=== PATIENT | female | born 1985 | race African-American/Black ===

== ENCOUNTER 2018-07-02 13:48 | Inpatient (IN) | payer SELFPAY ==
[~2018-07-02] VITALS: Ht 162.6 cm; Wt 63.0 kg
[2018-07-02] VITALS (18 sets, daily range): BP systolic 88–123; BP diastolic 32–81
[2018-07-02] MEDS ORDERED: ONDANSETRON HCL 4MG/2ML INJ IV STA (14:05)
[2018-07-02] MEDS ORDERED: ETOMIDATE 2MG/ML 10ML VIAL IV ONE ×2 (14:15→14:22)
[2018-07-02] MEDS ORDERED: VECURONIUM BROMIDE 10 MG/VIAL IV ONE ×2 (14:15→14:22)
[2018-07-02] MEDS ORDERED: LEVETIRACETAM 500MG PREMIX 100 ML IV ONE (14:15)
[2018-07-02] MEDS ORDERED: PROPOFOL 10MG/ML 100ML 100 ML IV ONE (14:15)
[2018-07-02] MEDS ORDERED: SODIUM CHLORIDE 0.9% 10ML VIAL ONE (14:22)
[2018-07-02 14:37] LABS: BG BASE EXCESS -21.8 mmol/L (-2.0-2.0); BG CARBOXYHEMOGLOBIN 0.3 % (0.5-1.5); BG DEOXYHEMOGLOBIN 4.4 % (0.0-5.0); BG FRACTION INSPIRED OXYGEN 100; BG HCO3 ACT 11.5 mmol/L (22.0-26.0); BG METHEMOGLOBIN 0.7 % (0.0-1.5); BG OXYGEN SATURATION 95.6 % (92.0-98.5); BG OXYHEMOGLOBIN 94.6 % (94.0-97.0); BG PCO2 60.8 mmHg (35.0-45.0); BG PH 6.894 (7.350-7.450); BG PO2 129.7 mmHg (75.0-100.0); BG SAMPLE SITE RIGHT RADIAL; BG TIDAL VOLUME(mL) 500 mL; BG TOTAL HEMOGLOBIN 13.3 g/dL (12.0-18.0); BG VENT MODE VENT - A/C; BG VENT RATE 18 set
[2018-07-02 14:47] LABS: BASOPHILS % 0.9 % (0.0-2.0); EOSINOPHILS % 5.4 % (0.0-5.0); HEMATOCRIT. 39.3 % (36.0-48.0); HEMOGLOBIN. 12.3 g/dL (12.0-16.0); LYMPHOCYTES % 34.1 % (20.0-50.0); MEAN PLATELET VOLUME 9.2 fl (7.4-10.4); MONOCYTES % 4.8 % (2.0-8.0); NEUTROPHILS % 54.8 % (40.0-76.0); PLATELET 425 x1000/uL (130-400); RED BLOOD CELL COUNT 4.23 mill/uL (4.2-5.4); RED CELL DISTRIBUTION WIDTH 14.1 % (11.6-14.6)
[2018-07-02 14:53] LABS: CHLORIDE 100 mEq/L (98-107)
[2018-07-02 14:57] LABS: ETHANOL BLOOD < 10 mg/dL
[2018-07-02 15:10] LABS: CARBAMAZEPINE < 0.5 ug/mL (4-12); PHENOBARBITAL < 2.1 ug/mL (15.0-40.0); VALPROIC ACID < 3.0 ug/mL (50-100)
[2018-07-02 15:13] LABS: HCG SCREEN NEGATIVE
[2018-07-02 15:26] LABS: INR 1.1; PARTIAL THROMBOPLASTIN TIME 29.6 sec (23.4-31.0); PROTHROMBIN TIME 11.3 sec (9.1-11.1)
[2018-07-02 15:40] LABS: BG BASE EXCESS -9.6 mmol/L (-2.0-2.0); BG CARBOXYHEMOGLOBIN 0.2 % (0.5-1.5); BG DEOXYHEMOGLOBIN 1.9 % (0.0-5.0); BG METHEMOGLOBIN 0.6 % (0.0-1.5); BG OXYGEN SATURATION 98.1 % (92.0-98.5); BG OXYHEMOGLOBIN 97.3 % (94.0-97.0); BG PCO2 45.7 mmHg (35.0-45.0); BG PH 7.214 (7.350-7.450); BG PO2 139.6 mmHg (75.0-100.0); BG SAMPLE SITE RIGHT RADIAL; BG TIDAL VOLUME(mL) 500 mL; BG TOTAL HEMOGLOBIN 13.8 g/dL (12.0-18.0); BG VENT MODE VENT - A/C; BG VENT RATE 22 set
[2018-07-02] MEDS ORDERED: LEVOFLOXACIN 750MG PREMIX 150 ML IV ONE (15:45)
[2018-07-02] MEDS ORDERED: METRONIDAZOLE 500 MG PREMIX 100 ML IV ONE (15:45)
[2018-07-02 15:56] LABS: CLARITY URINE CLEAR (CLEAR); COLOR URINE YELLOW (YELLOW); KETONES URINE NEGATIVE (NEGATIVE); LEUKOCYTE ESTERASE URINE 2+ (NEGATIVE); NITRITE URINE NEGATIVE (NEGATIVE); OCCULT BLOOD URINE 1+ (NEGATIVE); PH URINE 6.5 (4.5-8.0); PROTEIN URINE 1+ (NEGATIVE); SPECIFIC GRAVITY URINE 1.008 (1.005-1.030); UROBILINOGEN URINE 0.2 E.U./dL (0.2-1.0)
[2018-07-02 16:07] LABS: *AMPHETAMINES SCREEN URINE NEGATIVE (NEGATIVE); *BARBITURATES SCREEN URINE NEGATIVE (NEGATIVE); *COCAINE SCREEN URINE NEGATIVE (NEGATIVE); METHADONE URINE SCREEN NEGATIVE (NEGATIVE); OPIATES URINE SCREEN NEGATIVE (NEGATIVE)
[2018-07-02 16:08] LABS: CANNABINOID URINE SCREEN NEGATIVE (NEGATIVE); PHENCYCLIDINE URINE SCREEN NEGATIVE (NEGATIVE)
[2018-07-02 16:13] LABS: *BENZODIAZEPINES SCREEN URINE PRESUMTIVE POSITIVE (NEGATIVE)
[2018-07-02] MEDS ORDERED: LORAZEPAM 20 MG in DEXT 5% WATER 90 ML IV STA ×2 (17:52→18:13)
[2018-07-02] MEDS ORDERED: SODIUM CHLORIDE 0.9% 1000ML BAG (SEPSIS BOLUS) IV ONE (18:00)
[2018-07-02] MEDS ORDERED: SODIUM CHLORIDE 0.9% 1,000 ML IV SCH (19:45)
[2018-07-02] MEDS ORDERED: PNEUMOCOCCAL 23-VAL P-SAC VAC 0.5 ML IM ONE (20:15)
[2018-07-02] MEDS ORDERED: INFLUENZA VIRUS VACCINE(AFLURIA) 0.5ML SYR IM ONE (20:15)
[2018-07-02] MEDS ORDERED: LORAZEPAM 20 MG in DEXT 5% WATER 90 ML IV PRN (20:30)
[2018-07-02] MEDS ORDERED: IPRATROPIUM/ALBUTEROL 0.5-3(2.5)MG/3ML NEB INH PRN (21:00)
[2018-07-02] MEDS ORDERED: ONDANSETRON HCL 4MG/2ML INJ IV PRN (21:00)
[2018-07-02] MEDS: IPRATROPIUM/ALBUTEROL 0.5-3(2.5)MG/3ML NEB HHN SCH (21:27)
[2018-07-02] MEDS: FAMOTIDINE 20MG/2ML VIAL IV SCH (21:43)
[2018-07-02] MEDS: LEVETIRACETAM 500 MG in SODIUM CHLORIDE 0.9% 100 ML IV SCH (21:43)
[2018-07-02 23:05] LABS: BG BASE EXCESS -8.9 mmol/L (-2.0-2.0); BG DEOXYHEMOGLOBIN 0.6 % (0.0-5.0); BG FRACTION INSPIRED OXYGEN 100; BG HCO3 ACT 18.1 mmol/L (22.0-26.0); BG METHEMOGLOBIN 0.5 % (0.0-1.5); BG OXYGEN SATURATION 99.4 % (92.0-98.5); BG OXYHEMOGLOBIN 98.9 % (94.0-97.0); BG PCO2 42.8 mmHg (35.0-45.0); BG PH 7.243 (7.350-7.450); BG PO2 275.5 mmHg (75.0-100.0); BG SAMPLE SITE LEFT RADIAL; BG TIDAL VOLUME(mL) 500 mL; BG TOTAL HEMOGLOBIN 13.1 g/dL (12.0-18.0); BG VENT MODE VENT - A/C; BG VENT RATE 22 set
[2018-07-02] MEDS: PROPOFOL 10MG/ML 100ML 100 ML IV PRN (23:25)
[2018-07-03] VITALS (101 sets, daily range): BP systolic 41–136; BP diastolic 19–111
[2018-07-03] MEDS: IPRATROPIUM/ALBUTEROL 0.5-3(2.5)MG/3ML NEB HHN SCH ×6 (00:09→20:27)
[2018-07-03] MEDS: PIPERACILLIN/TAZ 3.375G PREMIX 50 ML IV SCH ×3 (00:10→11:51)
[2018-07-03] MEDS ORDERED: LORAZEPAM 2MG/ML CPJ IV PRN (02:30)
[2018-07-03 05:51] LABS: HEMATOCRIT. 35.5 % (36.0-48.0); MEAN CORPUSCULAR HEMOGLOBIN 29.6 pg (28.0-32.0); MEAN PLATELET VOLUME 8.4 fl (7.4-10.4); PLATELET 234 x1000/uL (130-400); RED BLOOD CELL COUNT 4.03 mill/uL (4.2-5.4); RED CELL DISTRIBUTION WIDTH 13.3 % (11.6-14.6)
[2018-07-03 05:55] LABS: PHOSPHORUS 2.3 mg/dL (2.5-4.9)
[2018-07-03] MEDS ORDERED: SODIUM CHLORIDE 0.9% 500 ML IV ONE (06:45)
[2018-07-03] MEDS ORDERED: SODIUM CHLORIDE 0.9% 1,000 ML IV ONE (06:45)
[2018-07-03 08:08] LABS: PLATELET ESTIMATE NORMAL
[2018-07-03 09:05] LABS: BG BASE EXCESS -9.1 mmol/L (-2.0-2.0); BG CARBOXYHEMOGLOBIN 0.5 % (0.5-1.5); BG DEOXYHEMOGLOBIN 1.1 % (0.0-5.0); BG FRACTION INSPIRED OXYGEN 70; BG HCO3 ACT 17.3 mmol/L (22.0-26.0); BG METHEMOGLOBIN 0.5 % (0.0-1.5); BG OXYGEN SATURATION 98.9 % (92.0-98.5); BG OXYHEMOGLOBIN 97.9 % (94.0-97.0); BG PCO2 39.4 mmHg (35.0-45.0); BG PH 7.261 (7.350-7.450); BG PO2 151.8 mmHg (75.0-100.0); BG SAMPLE SITE LEFT BRACHIAL; BG TIDAL VOLUME(mL) 500 mL; BG TOTAL HEMOGLOBIN 11.8 g/dL (12.0-18.0); BG VENT MODE VENT - A/C; BG VENT RATE 22 set
[2018-07-03] MEDS: FAMOTIDINE 20MG/2ML VIAL IV SCH (09:25)
[2018-07-03] MEDS: LEVETIRACETAM 500 MG in SODIUM CHLORIDE 0.9% 100 ML IV SCH ×2 (09:25→20:39)
[2018-07-03] MEDS: ENOXAPARIN 40MG/0.4ML SYR SUBCUT SCH (09:26)
[2018-07-03] MEDS: PROPOFOL 10MG/ML 100ML 100 ML IV PRN (14:02)
[2018-07-03] MEDS: SODIUM CHLORIDE 0.9% 1,000 ML IV SCH ×2 (14:12→20:46)
[2018-07-03] MEDS: PIPERACILLIN/TAZ 2.25G PREMIX 50 ML IV SCH ×2 (18:33→23:51)
[2018-07-03] MEDS: ACETAMINOPHEN 325MG TABLET NG PRN (20:45)
[2018-07-04] VITALS (89 sets, daily range): BP systolic 89–143; BP diastolic 30–100
[2018-07-04] MEDS: IPRATROPIUM/ALBUTEROL 0.5-3(2.5)MG/3ML NEB HHN SCH ×4 (00:37→12:07)
[2018-07-04] MEDS: PROPOFOL 10MG/ML 100ML 100 ML IV PRN ×2 (02:00→11:00)
[2018-07-04] MEDS: SODIUM CHLORIDE 0.9% 1,000 ML IV SCH ×4 (04:50→21:20)
[2018-07-04] MEDS: PIPERACILLIN/TAZ 2.25G PREMIX 50 ML IV SCH ×4 (05:26→23:27)
[2018-07-04 08:31] LABS: BG CARBOXYHEMOGLOBIN 0.2 % (0.5-1.5); BG DEOXYHEMOGLOBIN 1.2 % (0.0-5.0); BG FRACTION INSPIRED OXYGEN 70; BG HCO3 ACT 20.2 mmol/L (22.0-26.0); BG METHEMOGLOBIN 0.5 % (0.0-1.5); BG OXYGEN SATURATION 98.8 % (92.0-98.5); BG OXYHEMOGLOBIN 98.1 % (94.0-97.0); BG PCO2 42.1 mmHg (35.0-45.0); BG PH 7.298 (7.350-7.450); BG PO2 212.9 mmHg (75.0-100.0); BG SAMPLE SITE LEFT BRACHIAL; BG TIDAL VOLUME(mL) 500 mL; BG VENT MODE VENT - A/C; BG VENT RATE 22 set
[2018-07-04] MEDS: LEVETIRACETAM 500 MG in SODIUM CHLORIDE 0.9% 100 ML IV SCH ×2 (09:44→20:48)
[2018-07-04] MEDS: ENOXAPARIN 40MG/0.4ML SYR SUBCUT SCH (09:45)
[2018-07-04] MEDS: FAMOTIDINE 20MG/2ML VIAL IV SCH (09:45)
[2018-07-04] MEDS ORDERED: POTASSIUM CHLORIDE 20MEQ/PACKET NG SCH (12:30)
[2018-07-04] MEDS ORDERED: POTASSIUM PHOS,M-BASIC-D-BASIC 15 MMOL in DEXT 5% WATER 245 ML IV SCH (13:30)
[2018-07-04] MEDS: METHYLPREDNISOLONE SOD SUCC 125 MG/2 ML VIAL IV SCH ×2 (14:07→22:10)
[2018-07-04] MEDS: ACETAMINOPHEN 325MG TABLET NG PRN (17:55)
[2018-07-04] MEDS: IPRATROPIUM BROMIDE (0.02%) 0.5MG/2.5ML NEB HHN SCH (20:00)
[2018-07-05] VITALS (85 sets, daily range): BP systolic 93–174; BP diastolic 39–99
[2018-07-05] MEDS: IPRATROPIUM BROMIDE (0.02%) 0.5MG/2.5ML NEB HHN SCH ×4 (02:01→20:15)
[2018-07-05] MEDS: PROPOFOL 10MG/ML 100ML 100 ML IV PRN ×3 (02:34→17:31)
[2018-07-05] MEDS: SODIUM CHLORIDE 0.9% 1,000 ML IV SCH ×3 (04:00→23:00)
[2018-07-05] MEDS: PIPERACILLIN/TAZ 2.25G PREMIX 50 ML IV SCH ×3 (05:11→17:30)
[2018-07-05] MEDS: METHYLPREDNISOLONE SOD SUCC 125 MG/2 ML VIAL IV SCH (05:12)
[2018-07-05 06:14] LABS: HEMATOCRIT. 34.4 % (36.0-48.0); HEMOGLOBIN. 11.2 g/dL (12.0-16.0); MEAN CORPUSCULAR HEMOGLOBIN 28.6 pg (28.0-32.0); MEAN CORPUSCULAR VOLUME 87.6 fL (81.0-99.0); MEAN PLATELET VOLUME 9.3 fl (7.4-10.4); PLATELET 232 x1000/uL (130-400); RED BLOOD CELL COUNT 3.93 mill/uL (4.2-5.4); RED CELL DISTRIBUTION WIDTH 14.2 % (11.6-14.6)
[2018-07-05 06:24] LABS: CHLORIDE 120 mEq/L (98-107)
[2018-07-05 06:30] LABS: PHOSPHORUS 1.5 mg/dL (2.5-4.9)
[2018-07-05 08:27] LABS: BG BASE EXCESS -3.7 mmol/L (-2.0-2.0); BG CARBOXYHEMOGLOBIN 0.4 % (0.5-1.5); BG DEOXYHEMOGLOBIN 1.2 % (0.0-5.0); BG FRACTION INSPIRED OXYGEN 40; BG HCO3 ACT 21.2 mmol/L (22.0-26.0); BG METHEMOGLOBIN 0.4 % (0.0-1.5); BG OXYGEN SATURATION 98.8 % (92.0-98.5); BG PCO2 37.7 mmHg (35.0-45.0); BG PH 7.367 (7.350-7.450); BG PO2 132.4 mmHg (75.0-100.0); BG SAMPLE SITE RIGHT RADIAL; BG TIDAL VOLUME(mL) 500 mL; BG TOTAL HEMOGLOBIN 11.4 g/dL (12.0-18.0); BG VENT MODE VENT - A/C; BG VENT RATE 22 set
[2018-07-05 08:29] LABS: PLATELET ESTIMATE NORMAL
[2018-07-05] MEDS: ENOXAPARIN 40MG/0.4ML SYR SUBCUT SCH (09:41)
[2018-07-05] MEDS: FAMOTIDINE 20MG/2ML VIAL IV SCH (09:41)
[2018-07-05] MEDS: LEVETIRACETAM 500 MG in SODIUM CHLORIDE 0.9% 100 ML IV SCH ×2 (09:42→21:16)
[2018-07-05] MEDS ORDERED: POTASSIUM PHOS,M-BASIC-D-BASIC 15 MMOL in DEXTROSE 5% WATER 250 ML IV NR (13:30)
[2018-07-05] MEDS: FLUCONAZOLE 200 MG/100ML BAG 100 ML IV SCH (15:37)
[2018-07-05] MEDS: VANCOMYCIN 1 G PREMIX 200 ML IV SCH (15:37)
[2018-07-05] MEDS: METHYLPREDNISOLONE SOD SUCC 40 MG/ML VIAL IV SCH (17:30)
[2018-07-06] VITALS (66 sets, daily range): BP systolic 89–149; BP diastolic 49–107
[2018-07-06] MEDS: PIPERACILLIN/TAZ 2.25G PREMIX 50 ML IV SCH ×5 (00:49→23:47)
[2018-07-06] MEDS: IPRATROPIUM BROMIDE (0.02%) 0.5MG/2.5ML NEB HHN SCH ×4 (02:01→20:10)
[2018-07-06] MEDS: VANCOMYCIN 1 G PREMIX 200 ML IV SCH ×2 (03:11→14:47)
[2018-07-06] MEDS: SODIUM CHLORIDE 0.9% 1,000 ML IV SCH ×4 (07:02→20:48)
[2018-07-06] MEDS: LEVETIRACETAM 500 MG in SODIUM CHLORIDE 0.9% 100 ML IV SCH ×2 (08:50→20:49)
[2018-07-06] MEDS: FAMOTIDINE 20MG/2ML VIAL IV SCH (08:51)
[2018-07-06] MEDS: METHYLPREDNISOLONE SOD SUCC 40 MG/ML VIAL IV SCH ×2 (08:51→17:20)
[2018-07-06] MEDS: ENOXAPARIN 40MG/0.4ML SYR SUBCUT SCH (08:51)
[2018-07-06] MEDS: PROPOFOL 10MG/ML 100ML 100 ML IV PRN ×2 (09:05→17:29)
[2018-07-06 10:45] LABS: HEMATOCRIT. 34.4 % (36.0-48.0); HEMOGLOBIN. 11.4 g/dL (12.0-16.0); MEAN CORPUSCULAR HEMOGLOBIN 28.9 pg (28.0-32.0); MEAN CORPUSCULAR VOLUME 87.2 fL (81.0-99.0); MEAN PLATELET VOLUME 9.1 fl (7.4-10.4); PLATELET 250 x1000/uL (130-400); RED BLOOD CELL COUNT 3.95 mill/uL (4.2-5.4); RED CELL DISTRIBUTION WIDTH 14.2 % (11.6-14.6)
[2018-07-06] MEDS: METOCLOPRAMIDE HCL 10MG/2ML VIAL IV SCH ×3 (12:09→23:51)
[2018-07-06 13:04] LABS: PLATELET ESTIMATE NORMAL
[2018-07-06] MEDS: FLUCONAZOLE 200 MG/100ML BAG 100 ML IV SCH (13:10)
[2018-07-06] MEDS: ACETYLCYSTEINE 100MG/ML 10% VIAL 4ML INH SCH (14:00)
[2018-07-06] MEDS: FENTANYL CITRATE/PF 50MCG/ML 2ML VIAL IV PRN (17:30)
[2018-07-07] VITALS (50 sets, daily range): BP systolic 100–142; BP diastolic 50–93
[2018-07-07] MEDS: IPRATROPIUM BROMIDE (0.02%) 0.5MG/2.5ML NEB HHN SCH ×4 (01:20→20:10)
[2018-07-07] MEDS: ACETYLCYSTEINE 100MG/ML 10% VIAL 4ML INH SCH ×3 (01:20→14:39)
[2018-07-07] MEDS: VANCOMYCIN 1 G PREMIX 200 ML IV SCH ×2 (02:11→13:24)
[2018-07-07] MEDS: SODIUM CHLORIDE 0.9% 1,000 ML IV SCH ×5 (02:11→22:00)
[2018-07-07] MEDS: PROPOFOL 10MG/ML 100ML 100 ML IV PRN ×2 (02:18→14:28)
[2018-07-07] MEDS: METOCLOPRAMIDE HCL 10MG/2ML VIAL IV SCH ×4 (07:06→23:51)
[2018-07-07] MEDS: PIPERACILLIN/TAZ 2.25G PREMIX 50 ML IV SCH ×4 (07:06→23:51)
[2018-07-07 08:26] LABS: BG BASE EXCESS 0.1 mmol/L (-2.0-2.0); BG CARBOXYHEMOGLOBIN 0.3 % (0.5-1.5); BG DEOXYHEMOGLOBIN 1.2 % (0.0-5.0); BG FRACTION INSPIRED OXYGEN 40; BG METHEMOGLOBIN 0.3 % (0.0-1.5); BG OXYGEN SATURATION 98.8 % (92.0-98.5); BG OXYHEMOGLOBIN 98.2 % (94.0-97.0); BG PCO2 36.7 mmHg (35.0-45.0); BG PH 7.434 (7.350-7.450); BG PO2 178.3 mmHg (75.0-100.0); BG SAMPLE SITE RIGHT RADIAL; BG TIDAL VOLUME(mL) 450 mL; BG TOTAL HEMOGLOBIN 11.7 g/dL (12.0-18.0); BG VENT MODE VENT - A/C; BG VENT RATE 20 set
[2018-07-07] MEDS: METHYLPREDNISOLONE SOD SUCC 40 MG/ML VIAL IV SCH ×2 (08:39→17:10)
[2018-07-07] MEDS: LEVETIRACETAM 500 MG in SODIUM CHLORIDE 0.9% 100 ML IV SCH ×2 (08:40→20:39)
[2018-07-07] MEDS: FLUCONAZOLE 100MG TABLET PO SCH (08:40)
[2018-07-07] MEDS: FAMOTIDINE 20MG/2ML VIAL IV SCH (08:40)
[2018-07-07] MEDS: ENOXAPARIN 40MG/0.4ML SYR SUBCUT SCH (08:40)
[2018-07-07] MEDS: FENTANYL CITRATE/PF 50MCG/ML 2ML VIAL IV PRN (08:42)
[2018-07-08] VITALS (103 sets, daily range): BP systolic 70–182; BP diastolic 36–130
[2018-07-08] MEDS: PROPOFOL 10MG/ML 100ML 100 ML IV PRN (01:03)
[2018-07-08] MEDS: IPRATROPIUM BROMIDE (0.02%) 0.5MG/2.5ML NEB HHN SCH ×4 (01:47→20:19)
[2018-07-08] MEDS: ACETYLCYSTEINE 100MG/ML 10% VIAL 4ML INH SCH ×2 (01:48→08:25)
[2018-07-08] MEDS: VANCOMYCIN 1 G PREMIX 200 ML IV SCH ×2 (02:00→14:53)
[2018-07-08 05:50] LABS: CHLORIDE 119 mEq/L (98-107)
[2018-07-08] MEDS: SODIUM CHLORIDE 0.9% 1,000 ML IV SCH ×3 (06:38→21:13)
[2018-07-08] MEDS: METOCLOPRAMIDE HCL 10MG/2ML VIAL IV SCH ×4 (06:39→23:31)
[2018-07-08] MEDS: PIPERACILLIN/TAZ 2.25G PREMIX 50 ML IV SCH ×4 (06:39→23:31)
[2018-07-08 08:35] LABS: BG CARBOXYHEMOGLOBIN 0.3 % (0.5-1.5); BG DEOXYHEMOGLOBIN 1.8 % (0.0-5.0); BG FRACTION INSPIRED OXYGEN 35; BG METHEMOGLOBIN 0.3 % (0.0-1.5); BG OXYGEN SATURATION 98.2 % (92.0-98.5); BG OXYHEMOGLOBIN 97.6 % (94.0-97.0); BG PCO2 42.2 mmHg (35.0-45.0); BG PH 7.391 (7.350-7.450); BG PO2 127.9 mmHg (75.0-100.0); BG SAMPLE SITE LEFT RADIAL; BG TIDAL VOLUME(mL) 450 mL; BG TOTAL HEMOGLOBIN 10.7 g/dL (12.0-18.0); BG VENT MODE VENT - A/C; BG VENT RATE 16 set
[2018-07-08] MEDS: LEVETIRACETAM 500 MG in SODIUM CHLORIDE 0.9% 100 ML IV SCH ×2 (09:06→20:53)
[2018-07-08] MEDS: FLUCONAZOLE 100MG TABLET PO SCH (09:07)
[2018-07-08] MEDS: FAMOTIDINE 20MG/2ML VIAL IV SCH (09:07)
[2018-07-08] MEDS: ENOXAPARIN 40MG/0.4ML SYR SUBCUT SCH (09:07)
[2018-07-08] MEDS: METHYLPREDNISOLONE SOD SUCC 40 MG/ML VIAL IV SCH ×2 (09:07→17:18)
[2018-07-08] MEDS: FENTANYL CITRATE/PF 50MCG/ML 2ML VIAL IV PRN ×3 (10:30→21:14)
[2018-07-08] MEDS ORDERED: PROPOFOL 10MG/ML 100ML 100 ML IV PRN (14:30)
[2018-07-08] MEDS: ACETAMINOPHEN 325MG TABLET NG PRN (20:53)
[2018-07-09] VITALS (63 sets, daily range): BP systolic 116–174; BP diastolic 32–123
[2018-07-09] MEDS: IPRATROPIUM BROMIDE (0.02%) 0.5MG/2.5ML NEB HHN SCH ×4 (01:54→20:11)
[2018-07-09] MEDS: VANCOMYCIN 1 G PREMIX 200 ML IV SCH ×2 (02:18→14:29)
[2018-07-09] MEDS: PIPERACILLIN/TAZ 2.25G PREMIX 50 ML IV SCH ×4 (05:05→23:24)
[2018-07-09] MEDS: FENTANYL CITRATE/PF 50MCG/ML 2ML VIAL IV PRN ×2 (05:06→10:15)
[2018-07-09] MEDS: METOCLOPRAMIDE HCL 10MG/2ML VIAL IV SCH ×4 (05:06→23:24)
[2018-07-09] MEDS: SODIUM CHLORIDE 0.9% 1,000 ML IV SCH ×3 (08:00→15:59)
[2018-07-09] MEDS: ENOXAPARIN 40MG/0.4ML SYR SUBCUT SCH (08:16)
[2018-07-09] MEDS: FLUCONAZOLE 100MG TABLET PO SCH (08:16)
[2018-07-09] MEDS: FAMOTIDINE 20MG/2ML VIAL IV SCH (08:16)
[2018-07-09] MEDS: METHYLPREDNISOLONE SOD SUCC 40 MG/ML VIAL IV SCH ×2 (08:16→18:50)
[2018-07-09] MEDS ORDERED: FENTANYL CITRATE/PF 50MCG/ML 2ML VIAL IV PRN (09:00)
[2018-07-09] MEDS: LEVETIRACETAM 500 MG in SODIUM CHLORIDE 0.9% 100 ML IV SCH ×2 (09:00→20:48)
[2018-07-09] MEDS ORDERED: LORAZEPAM 2MG/ML CPJ IV PRN (09:00)
[2018-07-09] MEDS: ACETYLCYSTEINE 100MG/ML 10% VIAL 4ML INH SCH ×2 (09:01→14:42)
[2018-07-09 10:02] LABS: BG BASE EXCESS 4.4 mmol/L (-2.0-2.0); BG CARBOXYHEMOGLOBIN 0.2 % (0.5-1.5); BG DEOXYHEMOGLOBIN 1.3 % (0.0-5.0); BG FRACTION INSPIRED OXYGEN 35; BG HCO3 ACT 29.1 mmol/L (22.0-26.0); BG METHEMOGLOBIN 0.6 % (0.0-1.5); BG OXYGEN SATURATION 98.7 % (92.0-98.5); BG OXYHEMOGLOBIN 97.9 % (94.0-97.0); BG PCO2 44.5 mmHg (35.0-45.0); BG PH 7.434 (7.350-7.450); BG PO2 134.8 mmHg (75.0-100.0); BG PRESSURE SUPPORT 12; BG SAMPLE SITE LEFT RADIAL; BG TIDAL VOLUME(mL) 450 mL; BG TOTAL HEMOGLOBIN 9.2 g/dL (12.0-18.0); BG VENT MODE VENT - SIMV; BG VENT RATE 10 set
[2018-07-09] MEDS ORDERED: FUROSEMIDE 40MG/4ML VIAL IVP NR (11:15)
[2018-07-09 17:29] LABS: BG BASE EXCESS 5.5 mmol/L (-2.0-2.0); BG CARBOXYHEMOGLOBIN 0.3 % (0.5-1.5); BG DEOXYHEMOGLOBIN 3.1 % (0.0-5.0); BG FRACTION INSPIRED OXYGEN 35; BG HCO3 ACT 29.4 mmol/L (22.0-26.0); BG METHEMOGLOBIN 0.3 % (0.0-1.5); BG OXYGEN SATURATION 96.9 % (92.0-98.5); BG OXYHEMOGLOBIN 96.3 % (94.0-97.0); BG PCO2 40.6 mmHg (35.0-45.0); BG PH 7.478 (7.350-7.450); BG PO2 87.7 mmHg (75.0-100.0); BG PRESSURE SUPPORT 8; BG SAMPLE SITE LEFT RADIAL; BG TOTAL HEMOGLOBIN 10.9 g/dL (12.0-18.0); BG VENT MODE VENT - CPAP
[2018-07-09] MEDS: ACETAMINOPHEN 325MG TABLET NG PRN (20:26)
[2018-07-10] VITALS (32 sets, daily range): BP systolic 111–156; BP diastolic 48–93
[2018-07-10] MEDS: ACETYLCYSTEINE 100MG/ML 10% VIAL 4ML INH SCH ×2 (01:34→09:15)
[2018-07-10] MEDS: IPRATROPIUM BROMIDE (0.02%) 0.5MG/2.5ML NEB HHN SCH ×4 (01:35→20:16)
[2018-07-10] MEDS: VANCOMYCIN 1 G PREMIX 200 ML IV SCH ×2 (02:00→13:45)
[2018-07-10 05:57] LABS: HEMATOCRIT. 32.3 % (36.0-48.0); HEMOGLOBIN. 10.8 g/dL (12.0-16.0); MEAN CORPUSCULAR HEMOGLOBIN 28.6 pg (28.0-32.0); MEAN CORPUSCULAR VOLUME 85.9 fL (81.0-99.0); MEAN PLATELET VOLUME 8.9 fl (7.4-10.4); PLATELET 284 x1000/uL (130-400); RED BLOOD CELL COUNT 3.76 mill/uL (4.2-5.4); RED CELL DISTRIBUTION WIDTH 13.6 % (11.6-14.6)
[2018-07-10] MEDS: PIPERACILLIN/TAZ 2.25G PREMIX 50 ML IV SCH ×3 (06:08→18:59)
[2018-07-10] MEDS: METOCLOPRAMIDE HCL 10MG/2ML VIAL IV SCH ×3 (06:08→18:59)
[2018-07-10 06:26] LABS: CHLORIDE 105 mEq/L (98-107)
[2018-07-10 07:35] LABS: BG BASE EXCESS 9.4 mmol/L (-2.0-2.0); BG CARBOXYHEMOGLOBIN 0.3 % (0.5-1.5); BG DEOXYHEMOGLOBIN 3.8 % (0.0-5.0); BG HCO3 ACT 33.2 mmol/L (22.0-26.0); BG METHEMOGLOBIN 0.1 % (0.0-1.5); BG OXYGEN SATURATION 96.2 % (92.0-98.5); BG OXYHEMOGLOBIN 95.8 % (94.0-97.0); BG PCO2 42.2 mmHg (35.0-45.0); BG PH 7.514 (7.350-7.450); BG PO2 77.9 mmHg (75.0-100.0); BG SAMPLE SITE RIGHT RADIAL; BG TOTAL HEMOGLOBIN 10.7 g/dL (12.0-18.0); BG VENT MODE NASAL CANNULA
[2018-07-10 08:55] LABS: PLATELET ESTIMATE NORMAL
[2018-07-10] MEDS: FAMOTIDINE 20MG/2ML VIAL IV SCH (09:00)
[2018-07-10] MEDS ORDERED: POTASSIUM CHLORIDE 20MEQ/PACKET PO NR (10:03)
[2018-07-10] MEDS: ENOXAPARIN 40MG/0.4ML SYR SUBCUT SCH (10:07)
[2018-07-10] MEDS: FLUCONAZOLE 100MG TABLET PO SCH (10:09)
[2018-07-10] MEDS: LEVETIRACETAM 500 MG in SODIUM CHLORIDE 0.9% 100 ML IV SCH ×2 (10:09→21:25)
[2018-07-11] VITALS (36 sets, daily range): BP systolic 110–170; BP diastolic 65–98
[2018-07-11] MEDS: METOCLOPRAMIDE HCL 10MG/2ML VIAL IV SCH ×4 (00:11→17:55)
[2018-07-11] MEDS: ACETAMINOPHEN 325MG TABLET NG PRN ×3 (00:24→13:03)
[2018-07-11] MEDS: IPRATROPIUM BROMIDE (0.02%) 0.5MG/2.5ML NEB HHN SCH ×3 (01:51→14:52)
[2018-07-11] MEDS: VANCOMYCIN 1 G PREMIX 200 ML IV SCH ×2 (03:15→15:32)
[2018-07-11 05:39] LABS: BASOPHILS % 0.2 % (0.0-2.0); EOSINOPHILS % 3.1 % (0.0-5.0); HEMATOCRIT. 33.9 % (36.0-48.0); HEMOGLOBIN. 11.1 g/dL (12.0-16.0); LYMPHOCYTES % 11.4 % (20.0-50.0); MEAN CORPUSCULAR HEMOGLOBIN 28.3 pg (28.0-32.0); MEAN CORPUSCULAR VOLUME 86.3 fL (81.0-99.0); MEAN PLATELET VOLUME 8.6 fl (7.4-10.4); MONOCYTES % 11.6 % (2.0-8.0); NEUTROPHILS % 73.7 % (40.0-76.0); PLATELET 326 x1000/uL (130-400); RED BLOOD CELL COUNT 3.93 mill/uL (4.2-5.4); RED CELL DISTRIBUTION WIDTH 13.8 % (11.6-14.6)
[2018-07-11] MEDS: SODIUM CHLORIDE 0.9% 1,000 ML IV SCH (05:48)
[2018-07-11 06:00] LABS: CHLORIDE 102 mEq/L (98-107)
[2018-07-11] MEDS ORDERED: POTASSIUM CHLORIDE 20MEQ/PACKET NG NR (08:30)
[2018-07-11] MEDS ORDERED: PREDNISONE 20MG TABLET PO SCH (09:00)
[2018-07-11] MEDS: LEVETIRACETAM 500 MG in SODIUM CHLORIDE 0.9% 100 ML IV SCH ×2 (09:36→21:55)
[2018-07-11] MEDS: ENOXAPARIN 40MG/0.4ML SYR SUBCUT SCH (09:37)
[2018-07-11] MEDS: FLUCONAZOLE 100MG TABLET PO SCH (09:37)
[2018-07-11] MEDS: FAMOTIDINE 20MG/2ML VIAL IV SCH (09:37)
[2018-07-11] MEDS: ATROPINE SULFATE 1% OPHTH 2ML SL SCH (22:00)
[2018-07-12] VITALS (15 sets, daily range): BP systolic 104–131; BP diastolic 52–79
[2018-07-12] MEDS: METOCLOPRAMIDE HCL 10MG/2ML VIAL IV SCH ×4 (01:07→17:34)
[2018-07-12] MEDS: VANCOMYCIN 1 G PREMIX 200 ML IV SCH ×2 (01:59→14:12)
[2018-07-12] MEDS: ACETAMINOPHEN 325MG TABLET NG PRN (04:54)
[2018-07-12] MEDS: ATROPINE SULFATE 1% OPHTH 2ML SL SCH ×3 (05:44→21:15)
[2018-07-12] MEDS: FLUCONAZOLE 100MG TABLET PO SCH (08:15)
[2018-07-12] MEDS: FAMOTIDINE 20MG/2ML VIAL IV SCH (08:15)
[2018-07-12] MEDS: IPRATROPIUM BROMIDE (0.02%) 0.5MG/2.5ML NEB HHN SCH ×3 (08:15→21:28)
[2018-07-12] MEDS: ENOXAPARIN 40MG/0.4ML SYR SUBCUT SCH (08:15)
[2018-07-12] MEDS: LEVETIRACETAM 500 MG in SODIUM CHLORIDE 0.9% 100 ML IV SCH ×2 (09:41→21:59)
[2018-07-13] VITALS (14 sets, daily range): BP systolic 99–123; BP diastolic 47–82
[2018-07-13] MEDS: METOCLOPRAMIDE HCL 10MG/2ML VIAL IV SCH ×4 (00:21→17:30)
[2018-07-13] MEDS: IPRATROPIUM BROMIDE (0.02%) 0.5MG/2.5ML NEB HHN SCH ×4 (02:43→20:24)
[2018-07-13] MEDS: ATROPINE SULFATE 1% OPHTH 2ML SL SCH ×3 (05:59→20:51)
[2018-07-13] MEDS: ENOXAPARIN 40MG/0.4ML SYR SUBCUT SCH (08:40)
[2018-07-13] MEDS: FAMOTIDINE 20MG/2ML VIAL IV SCH (08:40)
[2018-07-13] MEDS: FLUCONAZOLE 100MG TABLET PO SCH (08:40)
[2018-07-13] MEDS: LEVETIRACETAM 500 MG in SODIUM CHLORIDE 0.9% 100 ML IV SCH ×2 (09:10→20:51)
[2018-07-13] MEDS ORDERED: POTASSIUM CHLORIDE 20MEQ/PACKET NG SCH (10:00)
[2018-07-13] MEDS: ACETAMINOPHEN 325MG TABLET NG PRN ×3 (11:55→23:16)
[2018-07-13 20:41] LABS: BASOPHILS % 0.2 % (0.0-2.0); EOSINOPHILS % 3.9 % (0.0-5.0); HEMATOCRIT. 30.4 % (36.0-48.0); HEMOGLOBIN. 10.1 g/dL (12.0-16.0); LYMPHOCYTES % 11.9 % (20.0-50.0); MEAN CORPUSCULAR VOLUME 87.1 fL (81.0-99.0); MEAN PLATELET VOLUME 8.1 fl (7.4-10.4); MONOCYTES % 10.7 % (2.0-8.0); NEUTROPHILS % 73.3 % (40.0-76.0); PLATELET 383 x1000/uL (130-400); RED BLOOD CELL COUNT 3.49 mill/uL (4.2-5.4); RED CELL DISTRIBUTION WIDTH 13.9 % (11.6-14.6)
[2018-07-13 20:58] LABS: CHLORIDE 105 mEq/L (98-107)
[2018-07-14] VITALS (12 sets, daily range): BP systolic 69–126; BP diastolic 31–83
[2018-07-14] MEDS: METOCLOPRAMIDE HCL 10MG/2ML VIAL IV SCH ×2 (00:24→05:57)
[2018-07-14] MEDS: IPRATROPIUM BROMIDE (0.02%) 0.5MG/2.5ML NEB HHN SCH ×3 (02:14→15:24)
[2018-07-14] MEDS: ATROPINE SULFATE 1% OPHTH 2ML SL SCH ×3 (05:57→22:24)
[2018-07-14] MEDS: GUAIFENESIN 200MG/10ML SUGAR FREE UDC NG PRN ×2 (06:30→20:30)
[2018-07-14] MEDS: ENOXAPARIN 40MG/0.4ML SYR SUBCUT SCH (08:23)
[2018-07-14] MEDS: FAMOTIDINE 20MG/2ML VIAL IV SCH ×2 (08:23→21:55)
[2018-07-14] MEDS: FLUCONAZOLE 100MG TABLET PO SCH (08:23)
[2018-07-14] MEDS: LEVETIRACETAM 500 MG in SODIUM CHLORIDE 0.9% 100 ML IV SCH (09:41)
[2018-07-14] MEDS ORDERED: SODIUM CHLORIDE 0.9% 500 ML IV NR (17:30)
[2018-07-14] MEDS: METOCLOPRAMIDE 10MG/10 ML UDC NG SCH ×2 (17:38→23:48)
[2018-07-14] MEDS: LEVETIRACETAM 500MG/5ML CUP NG SCH (21:54)
[2018-07-15] VITALS (12 sets, daily range): BP systolic 90–133; BP diastolic 49–83
[2018-07-15] MEDS: IPRATROPIUM BROMIDE (0.02%) 0.5MG/2.5ML NEB HHN SCH ×3 (00:47→15:09)
[2018-07-15] MEDS: ATROPINE SULFATE 1% OPHTH 2ML SL SCH ×3 (05:07→21:53)
[2018-07-15] MEDS: METOCLOPRAMIDE 10MG/10 ML UDC NG SCH ×3 (05:16→17:44)
[2018-07-15] MEDS: LEVETIRACETAM 500MG/5ML CUP NG SCH ×2 (09:41→21:59)
[2018-07-15] MEDS: ENOXAPARIN 40MG/0.4ML SYR SUBCUT SCH (09:41)
[2018-07-15] MEDS: GUAIFENESIN 200MG/10ML SUGAR FREE UDC NG PRN ×2 (09:41→20:29)
[2018-07-15] MEDS: FAMOTIDINE 20MG/2ML VIAL IV SCH ×2 (09:41→21:58)
[2018-07-15] MEDS: ACETAMINOPHEN 325MG TABLET NG PRN (09:42)
[2018-07-16] VITALS (10 sets, daily range): BP systolic 91–119; BP diastolic 53–73
[2018-07-16] MEDS: METOCLOPRAMIDE 10MG/10 ML UDC NG SCH ×4 (00:20→18:00)
[2018-07-16] MEDS: IPRATROPIUM BROMIDE (0.02%) 0.5MG/2.5ML NEB HHN SCH ×3 (03:06→20:18)
[2018-07-16] MEDS: ATROPINE SULFATE 1% OPHTH 2ML SL SCH ×3 (05:24→22:27)
[2018-07-16] MEDS ORDERED: BARIUM SULFATE 176 GM SUSP.RECON ONE (09:02)
[2018-07-16] MEDS: LEVETIRACETAM 500MG/5ML CUP NG SCH ×2 (09:44→22:23)
[2018-07-16] MEDS: ENOXAPARIN 40MG/0.4ML SYR SUBCUT SCH (09:44)
[2018-07-16] MEDS: FAMOTIDINE 20MG/2ML VIAL IV SCH ×2 (09:44→22:24)
[2018-07-16] MEDS: GUAIFENESIN 200MG/10ML SUGAR FREE UDC NG PRN ×2 (09:47→16:07)
[2018-07-16] MEDS ORDERED: ACETAMINOPHEN 650MG/20.3ML UDC NG PRN (11:15)
[2018-07-16 11:57] LABS: BASOPHILS % 0.8 % (0.0-2.0); EOSINOPHILS % 3.5 % (0.0-5.0); HEMATOCRIT. 33.4 % (36.0-48.0); HEMOGLOBIN. 11.3 g/dL (12.0-16.0); LYMPHOCYTES % 17.9 % (20.0-50.0); MEAN CORPUSCULAR HEMOGLOBIN 29.6 pg (28.0-32.0); MEAN CORPUSCULAR VOLUME 87.7 fL (81.0-99.0); MEAN PLATELET VOLUME 8.4 fl (7.4-10.4); MONOCYTES % 10.6 % (2.0-8.0); NEUTROPHILS % 67.2 % (40.0-76.0); PLATELET 499 x1000/uL (130-400); RED CELL DISTRIBUTION WIDTH 14.2 % (11.6-14.6)
[2018-07-16 12:47] LABS: CHLORIDE 105 mEq/L (98-107)
[2018-07-16] MEDS: FLUTICASONE PROPIONATE 50MCG/SPRAY BOTTLE BOTHNSTRLS SCH (22:27)
[2018-07-17] VITALS (9 sets, daily range): BP systolic 101–115; BP diastolic 56–78
[2018-07-17] MEDS: IPRATROPIUM BROMIDE (0.02%) 0.5MG/2.5ML NEB HHN SCH ×5 (00:35→20:49)
[2018-07-17] MEDS: METOCLOPRAMIDE 10MG/10 ML UDC NG SCH ×5 (00:43→22:54)
[2018-07-17] MEDS: GUAIFENESIN 200MG/10ML SUGAR FREE UDC NG PRN ×3 (03:18→21:03)
[2018-07-17] MEDS: ATROPINE SULFATE 1% OPHTH 2ML SL SCH ×3 (06:48→21:18)
[2018-07-17] MEDS: FLUTICASONE PROPIONATE 50MCG/SPRAY BOTTLE BOTHNSTRLS SCH ×2 (08:20→21:03)
[2018-07-17] MEDS: FAMOTIDINE 20MG/2ML VIAL IV SCH ×2 (08:20→21:03)
[2018-07-17] MEDS: ENOXAPARIN 40MG/0.4ML SYR SUBCUT SCH (08:20)
[2018-07-17] MEDS: LEVETIRACETAM 500MG/5ML CUP NG SCH ×2 (08:20→21:03)
[2018-07-18] MEDS: IPRATROPIUM BROMIDE (0.02%) 0.5MG/2.5ML NEB HHN SCH ×4 (01:59→20:24)
[2018-07-18 02:47] VITALS: BP 98/64
[2018-07-18 05:00] VITALS: BP 103/72
[2018-07-18] MEDS: ATROPINE SULFATE 1% OPHTH 2ML SL SCH ×3 (05:18→21:44)
[2018-07-18] MEDS: METOCLOPRAMIDE 10MG/10 ML UDC NG SCH ×3 (05:18→17:38)
[2018-07-18] MEDS: GUAIFENESIN 200MG/10ML SUGAR FREE UDC NG PRN (05:22)
[2018-07-18 07:40] VITALS: BP 91/60
[2018-07-18] MEDS: FAMOTIDINE 20MG/2ML VIAL IV SCH ×2 (08:09→20:09)
[2018-07-18] MEDS: FLUTICASONE PROPIONATE 50MCG/SPRAY BOTTLE BOTHNSTRLS SCH ×2 (08:09→20:09)
[2018-07-18] MEDS: LEVETIRACETAM 500MG/5ML CUP NG SCH ×2 (08:09→20:09)
[2018-07-18] MEDS: ENOXAPARIN 40MG/0.4ML SYR SUBCUT SCH (08:09)
[2018-07-18 12:30] VITALS: BP 105/67
[2018-07-18 16:07] VITALS: BP 108/67
[2018-07-18 20:00] VITALS: BP 106/64
[2018-07-19] VITALS: BP 118/66
[2018-07-19] MEDS: METOCLOPRAMIDE 10MG/10 ML UDC NG SCH ×3 (01:18→12:55)
[2018-07-19] MEDS: IPRATROPIUM BROMIDE (0.02%) 0.5MG/2.5ML NEB HHN SCH ×4 (01:49→21:37)
[2018-07-19 04:00] VITALS: BP 120/66
[2018-07-19] MEDS: ATROPINE SULFATE 1% OPHTH 2ML SL SCH ×3 (05:18→22:00)
[2018-07-19 08:00] VITALS: BP 89/74
[2018-07-19] MEDS: FLUTICASONE PROPIONATE 50MCG/SPRAY BOTTLE BOTHNSTRLS SCH (09:41)
[2018-07-19] MEDS: LEVETIRACETAM 500MG/5ML CUP NG SCH ×2 (09:41→21:47)
[2018-07-19] MEDS: FAMOTIDINE 20MG/2ML VIAL IV SCH (09:41)
[2018-07-19] MEDS: ENOXAPARIN 40MG/0.4ML SYR SUBCUT SCH (09:42)
[2018-07-19 12:00] VITALS: BP 121/74
[2018-07-19 16:14] VITALS: BP 101/70
[2018-07-19 20:00] VITALS: BP 110/70
[2018-07-19] MEDS: GUAIFENESIN 200MG/10ML SUGAR FREE UDC NG PRN (21:47)
[2018-07-19] MEDS: FAMOTIDINE 20MG TABLET PO SCH (21:47)
[2018-07-20] MEDS: IPRATROPIUM BROMIDE (0.02%) 0.5MG/2.5ML NEB HHN SCH ×4 (02:39→19:59)
[2018-07-20 04:00] VITALS: BP 102/67
[2018-07-20] MEDS: ATROPINE SULFATE 1% OPHTH 2ML SL SCH ×3 (06:00→21:28)
[2018-07-20 08:00] VITALS: BP 97/66
[2018-07-20] MEDS: LEVETIRACETAM 500MG/5ML CUP NG SCH ×2 (08:28→21:28)
[2018-07-20] MEDS: ENOXAPARIN 40MG/0.4ML SYR SUBCUT SCH (08:29)
[2018-07-20] MEDS ORDERED: LORAZEPAM 0.5MG TABLET PO PRN (11:15)
[2018-07-20 12:00] VITALS: BP 110/71
[2018-07-20 16:00] VITALS: BP 104/72
[2018-07-20 20:00] VITALS: BP 96/60
[2018-07-20] MEDS: GUAIFENESIN 200MG/10ML SUGAR FREE UDC NG PRN (21:28)
[2018-07-20] MEDS: FAMOTIDINE 20MG TABLET PO SCH (21:28)
[2018-07-21] VITALS: BP 96/58
[2018-07-21] MEDS: IPRATROPIUM BROMIDE (0.02%) 0.5MG/2.5ML NEB HHN SCH ×4 (01:06→21:52)
[2018-07-21 04:00] VITALS: BP 102/68
[2018-07-21] MEDS: ATROPINE SULFATE 1% OPHTH 2ML SL SCH ×2 (06:31→13:48)
[2018-07-21 08:00] VITALS: BP 91/42
[2018-07-21] MEDS: LEVETIRACETAM 500MG/5ML CUP NG SCH (08:48)
[2018-07-21] MEDS: ENOXAPARIN 40MG/0.4ML SYR SUBCUT SCH (08:49)
[2018-07-21 12:00] VITALS: BP 101/59
[2018-07-21] MEDS ORDERED: GUAIFENESIN 200MG/10ML SUGAR FREE UDC PO PRN (12:15)
[2018-07-21 16:00] VITALS: BP 91/55
[2018-07-21 20:00] VITALS: BP 101/64
[2018-07-21] MEDS: LEVETIRACETAM 500MG/5ML CUP PO SCH (20:56)
[2018-07-21] MEDS: LORATADINE 10MG TABLET PO SCH (20:56)
[2018-07-21] MEDS: FAMOTIDINE 20MG TABLET PO SCH (20:56)
[2018-07-22] VITALS: BP 104/67
[2018-07-22] MEDS: ATROPINE SULFATE 1% OPHTH 2ML SL SCH ×3 (01:09→16:18)
[2018-07-22] MEDS: IPRATROPIUM BROMIDE (0.02%) 0.5MG/2.5ML NEB HHN SCH ×3 (03:26→13:50)
[2018-07-22 04:00] VITALS: BP 108/67
[2018-07-22] MEDS: LEVETIRACETAM 500MG/5ML CUP PO SCH (08:33)
[2018-07-22] MEDS: LORATADINE 10MG TABLET PO SCH (08:33)
[2018-07-22 16:00] VITALS: BP 110/71
[2018-07-22 18:22] VITALS: BP 130/63
== END 2018-07-22 18:50 | disposition home or self-care (01) | DRG 720 ==
LOC: ER 16:05 → MICUNO 17:39 → EDBEDREQTM 17:43 → EDBEDREQ 17:43 → EDBEDREQSVC 17:43 → EDBEDREQTM 17:48 → ENRESERV 18:00 → MICUSO 07-10 19:00 → 5EST 07-11 18:10 → 6EST 07-19 15:19
PROVIDERS: ADMIT Internal Medicine; ATTEND Internal Medicine
PROC: 0BH17EZ Insertion of Endotracheal Airway into Trachea, Via Natural or Artificial Opening (ICD-10-PCS; principal; 2018-07-02)
PROC: 5A1955Z Respiratory Ventilation, Greater than 96 Consecutive Hours (ICD-10-PCS; 2018-07-02)
PROC: 4A00X4Z Measurement of Central Nervous Electrical Activity, External Approach (ICD-10-PCS; 2018-07-05)
DX: A41.9 Sepsis, unspecified organism (principal); B37.1 Pulmonary candidiasis; J96.00 Acute respiratory failure, unspecified whether with hypoxia or hypercapnia; J69.0 Pneumonitis due to inhalation of food and vomit; E87.4 Mixed disorder of acid-base balance; E83.39 Other disorders of phosphorus metabolism; K56.7 Ileus, unspecified; F84.0 Autistic disorder; E87.6 Hypokalemia; R73.9 Hyperglycemia, unspecified; G80.9 Cerebral palsy, unspecified; H54.7 Unspecified visual loss; G40.901 Epilepsy, unspecified, not intractable, with status epilepticus; Z78.1 Physical restraint status
CPT/HCPCS: 31500; 36415; 36600; 51702; 70551; 71045; 74018; 74230; 80048; 80156; 80165; 80184; 80185; 80202; 80305; 81003; 81025; 82375; 82570; 82805; 83605; 83735; 83880; 83930; 83935; 84100; 84145; 84300; 84478; 84484; 84540; 84703; 86850; 86900; 87070; 87106; 92610; 92611; 93005; 93970; 94002; 94003; 94640; 96365; 96366; 96367; 96368; 96375; 97116; 97162; 97166; 97530; 99291; A4216; A6261; G0482; J1450; J1650; J1940; J1953; J1956; J2060; J2405; J2543; J2704; J2765; J2920; J2930; J3010; J3370; J3490; J7030; J7040; J7050; J7060; J7512; J7608; J7620; J8597